=== PATIENT | male | born 2000 | race Caucasian/White ===

== ENCOUNTER 2020-02-24 21:38 | Emergency (ER) | payer SELFPAY ==
[~2020-02-24 21:38] MED LIST: AMOX250S5 PO; BALS750C PO; CETI10TA49 PO; DEXAINTSOL PO; GABA-488 PO; HYDR-700 PO; HYDR15SO8 PO; NF-ESOM40C PO; SERT100T PO; SUCR1TAB PO; TETRACAINESUCKERS MT
[2020-02-24] MEDS ORDERED: CEPH500T PO (21:54)
[2020-02-24] MEDS ORDERED: [UNRECOGNIZED DRUG - CODE] TP (21:54)
--- NOTE | 2020-02-24 21:55 | ED Integumentary General ---
General Stated Complaint: BURN ON RT FINGER Source: patient Exam Limitations: no limitations History of Present Illness Date Seen by Provider: Feb 24, 2020 Time Seen by Provider: 21:36 Initial Comments Patient presents to ER by private conveyance with chief complaint within the last hour he burned his middle finger on the right hand while cooking in some h ot liquid. I a small blister on the tip of his finger. It feels better when he puts it in cold water. He put some aloe on it and took 2 Tylenol before coming in. Allergies and Home Medications Allergies Coded Allergies: No Known Drug Allergies (Unverified , 04/13/16) Home Medications Amoxicillin 250 Mg/5 Ml Susp, 2 TSP PO BID Prescribed by: LYNDSEY ZAMARRIPA on 04/20/16957 Dexamethasone 1 Mg/1 Ml Valentine, 2 TSP PO DAILY PRN for PAIN Mix 4MG/2.5CC water Prescribed by: LYNDSEY ZAMARRIPA on 04/20/16957 Esomeprazole Magnesium 40 Mg Cap, 40 MG PO BID, (Reported) Gabapentin 300 Mg Capsule, 300 MG PO BID, (Reported) Hydrocodone/Acetaminophen 15 Ml Solution, 2-3 TSP PO Q4H Prescribed by: LYNDSEY ZAMARRIPA on 04/20/16957 Hydroxyzine HCl 25 Mg Tablet, 25 MG PO BID, (Reported) Sertraline HCl 100 Mg Tablet, 150 MG PO DAILY, (Reported) Sucralfate 1 Gm Tablet, 1 GM PO QID, (Reported) Tetracaine Sucker Ea, 1 EA MT UD PRN for PAIN Tetracain Suckers These suckers are custom made and require a prescription. Moisten the sucker first and then suck on it gently as far back in the mouth as possible for 2-3 days. You can repeadt it in about an hour. This will take the edge off but not completely numb the throat. Prescribed by: LYNDSEY ZAMARRIPA on 04/20/16957 Patient Home Medication List Home Medication List Reviewed: Yes Review of Systems Review of Systems Constitutional: No chills, No fever EENTM: No ear discharge, No ear pain Respiratory: No cough, No short of breath Cardiovascular: No chest pain, No Hx of Intervention All Other Systems Reviewed Negative Unless Noted: Yes Past Eluoljv-Nczazc-Omplog Hx Patient Social History Alcohol Use: Denies Use Recreational Drug Use: No Smoking Status: Never a Smoker Recent Foreign Travel: No Contact w/Someone Who Travel: No Recent Hopitalizations: No Seasonal Allergies Seasonal Allergies: Yes Past Medical History Reproductive Disorders: No Sexually Transmitted Disease: No HIV/AIDS: No Ulcer Anxiety, Depression Adverse Reaction/Blood Tranf: No (N/A) Physical Exam Vital Signs Capillary Refill : General Appearance: WD/WN, mild distress HEENT: PERRL/EOMI, pharynx normal Neck: full range of motion, normal inspection Cardiovascular: normal peripheral pulses, regular rate, rhythm Respiratory: no respiratory distress, no accessory muscle use Skin: other (1 cm diameter flaccid bullae on the distal tip of the middle finger right hand. Mild maceration of the scan of the distal to phalanxes) Progress/Results/Core Measures Results/Orders My Orders Orders - WILFREDO BRAR Ketorolac Injection (Toradol Injection) (02/24/20 22:00) Progress Progress Note : Time: 21:51 Progress Note Cleaned and dressed with dry gauze dressing. Encourage him to shrimp picker either some lidocaine jelly or aloe vera jelly and keep it dressed. We will provide him with a prescription for antibiotics if it becomes red and inflamed. We did offer do a nerve block which he declined. Toradol 60 mg. Departure Impression Primary Impression: Second degree burn injury Disposition: 01 HOME, SELF-CARE Condition: Stable Departure-Patient Inst. Decision time for Depature: 21:52 Patient Instructions: Skin Steven (DC) Add. Discharge Instructions: Tylenol 1000 mg every 8 hours as necessary for pain. Ibuprofen 800 mg every 8 hours as necessary for pain. Keep the skin intact as long as possible and treat with aloe vera or other similar burn emollients especially with lidocaine. Change the dressing daily or more often if it becomes soiled. If the wound gets red or starts having discharge or you develop a fever then start the antibiotics and follow-up with your primary care doctor. Scripts Lidocaine/Aloe Vera (Burn Relief W-Aloe Amo) 127 Gm Amo 127 GM TP Q4H PRN for PAIN-BREAKTHROUGH, #1 SPRAY 0 Refills Prov: WILFREDO BRAR 02/24/20 Cephalexin (Cephalexin) 500 Mg Tablet 500 MG PO QID for 7 Days, #28 TAB 0 Refills Prov: WILFREDO BRAR 02/24/20 Work/School Note: Work Release Form Date Seen in the Emergency Department: Feb 24, 2020 Return to Work: Feb 25, 2020 Restrictions: Need Release from Doctor Other Restrictions Listed Below: Minimize use of the right hand until 03/01/20. Restrictions: Keep dressing on right hand clean and dry. WILFREDO BRAR Feb 24, 2020 21:55
[2020-02-24 21:57] VITALS: BP 141/80
[2020-02-24] MEDS ORDERED: KETOROLAC 60 MG/2 ML VIAL IM ONE (22:00)
== END 2020-02-24 21:58 | disposition home or self-care (01) ==
LOC: EDUNIT# 21:38 → ER FS 21:41
DX: T23.221A Burn of second degree of single right finger (nail) except thumb, initial encounter (principal); F41.9 Anxiety disorder, unspecified; F32.9 Major depressive disorder, single episode, unspecified; X12.XXXA Contact with other hot fluids, initial encounter; Y93.G3 Activity, cooking and baking
CPT/HCPCS: 99284